=== PATIENT | female | born 1960 | race Hispanic/Latino ===

== ENCOUNTER 2017-08-02 13:04 | Inpatient (IN) | payer OTHER ==
[~2017-08-02] VITALS: Ht 152.4 cm; Wt 57.3 kg
[~2017-08-02 13:04] MED LIST: ALENDRONATE SOD70 MG PO; ANTIVERT 25MG #1 PAC PO; FIORICET 50-301 EACH PO; FOLIC ACID0.4 MG PO; FOLIC ACID0.8 M2 PO; HYDROXYCHLOROQ200 MG PO; HYDROXYZINE50 MG PO; IBUPROFEN600 M1 PO; LEADER MELATONIN5 MG PO; NAPROXEN375 MG PO; NEURONTIN300 MG PO; ZOFRAN ODT4 M1 PO; ZOLPIDEM TARTRA10 M1 PO
[2017-08-02] MEDS ORDERED: SULFASALAZINE500 M2 PO (15:14)
[2017-08-02] MEDS ORDERED: PHENOBARBITAL60 M1 PO (15:14)
[2017-08-02] MEDS ORDERED: CRESTOR5 M1 PO (15:14)
[2017-08-02] MEDS ORDERED: OMEPRAZOLE40 M1 PO (15:15)
[2017-08-02] MEDS ORDERED: ALENDRONATE SOD70 M2 PO (15:15)
[2017-08-02] MEDS ORDERED: NAPROXEN375 M2 PO (15:15)
[2017-08-02] MEDS ORDERED: GABAPENTIN300 M2 PO (15:16)
[2017-08-02 15:57] LABS: ABSOLUTE BASOPHIL COUNT 0 /CUMM (0.0-0.2); ABSOLUTE EOSINOPHIL COUNT 0.1 /CUMM (0.0-0.7); ABSOLUTE GRANULOCYTE CT 2.6 /CUMM (1.4-6.5); ABSOLUTE LYMPH COUNT 2.2 /CUMM (1.2-3.4); ABSOLUTE MONOCYTE COUNT 0.4 /CUMM (0.10-0.60); BASOPHIL % 0.6 % (0.0-2.0); EOSINOPHIL % 1.7 % (0-5); GRANULOCYTE % 48.1 % (42.2-75.2); MEAN CORPUSCULAR HGB 31.8 PG (27.0-31.0); MEAN CORPUSCULAR HGB CONC 33.7 G/DL (33.0-37.0); MEAN CORPUSCULAR VOLUME 94.4 FL (81.0-99.0); MEAN PLATELET VOLUME 8.1 FL (7.4-10.4); PLATELET COUNT 227 /CUMM (130-400); RBC DISTRIBUTION WIDTH 12.8 % (11.5-14.5); RED BLOOD CELL CT 3.81 /CUMM (4.20-5.40); WHITE BLOOD CELL COUNT 5.4 /CUMM (4.8-10.8)
--- NOTE | 2017-08-02 17:12 | ED PSYCHIATRIC COMPLAINT ---
History of Present Illness General Chief Complaint: Psychiatric Related Complaint Stated Complaint: DEPRESSION RELATED COMPLAINTS PER PT Source: patient, Allergies Coded Allergies: morphine (DIZZY 07/16/15) oxycodone (From PERCOCET) (DIZZY 07/16/15) Reconcile Medications Alendronate Sodium 70 MG TABLET 1 TAB PO QW BONE (Reported) in the morning, at least 30 minutes before the first food, beverage, or medication of the day Gabapentin 300 MG CAPSULE 1 CAP PO TID UNKNOWN (Reported) Naproxen 375 MG TABLET 1 TAB PO BID PAIN (Reported) with food Omeprazole 40 MG CAPSULE.DR 1 CAP PO DAILY GI (Reported) Phenobarbital 60 MG TABLET 1 TAB PO BID UNKNOWN (Reported) Rosuvastatin Calcium (Crestor) 5 MG TABLET 1 TAB PO DAILY CHOLESTEROL ( Reported) Sulfasalazine 500 MG TABLET 1 TAB PO BID UNKNOWN (Reported) Triage Note: 57F WITH DEPRESSION ARRIVES TEARFUL IN TRIAGE, STATING SHE HAS WORSENING DEPRESSION X1 MONTH AND OVER THE LAST WEEK HAS WANTED TO KILL HERSELF. HAS PLAN TO OVERDOSE. ENDORSES DYSPHORIA AND INABILITY TO GET OUT OF BED. DENIES ANY RECENT MED CHANGES OR CHANGES IN PSYCHOSOCIAL STRESSORS. DENIES CURRENT PSYCHOTROPIC MED REGIMEN. DENIES ACCESS TO FIREARMS AT HOME. DENIES SI. DENIES ETOH OR ILLICIT DRUGS. Triage Nurses Notes Reviewed? yes HPI: Patient presents for evaluation of severe depression with suicide ideation and medication overdose last week. Patient's depression continues and she feels sad all the time. She has lost interest in "everything" with decreased appetite. She has a history of anxiety and depression and has been taking medications as prescribed. She denies alcohol or drug use. (Kamilah KUHN,Damon Quinn) General Source: patient Exam Limitations: no limitations Vital Signs & Intake/Output Vital Signs & Intake/Output Vital Signs Date Time Temp Pulse Resp B/P B/P Pulse O2 O2 Flow FiO2 Mean Ox Delivery Rate 08/03 0908 98.9 75 20 109/69 98 Room Air 08/03 0721 97.9 76 16 130/80 97 Room Air 08/02 2331 97.8 83 20 142/70 98 Room Air 08/02 1922 98.3 67 20 136/83 99 Room Air 08/02 1704 98.2 72 20 157/82 98 Room Air 08/02 1515 98.2 62 20 139/72 98 Room Air 08/02 1317 98.0 102 18 160/80 99 Room Air ED Intake and Output 08/03 0000 08/02 1200 Intake Total Output Total Balance Patient 127 lb Weight Triage Nurses Notes Reviewed? yes (Anders Navas MD) Past History Travel History Traveled to [place] past 21 day No Medical History Any Pertinent Medical History? 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 No (Damon Triana MD) Medical History Any Pertinent Medical History? see below for history Family History Hx Contributory? No (Anders Navas MD) Review of Systems Review of Systems Constitutional: Reports: no symptoms. EENTM: Reports: no symptoms. Respiratory: Reports: no symptoms. Cardiovascular: Reports: no symptoms. GI: Reports: no symptoms. Genitourinary: Reports: no symptoms. Musculoskeletal: Reports: no symptoms. Skin: Reports: no symptoms. Neurological/Psychological: Reports: see HPI. Hematologic/Endocrine: Reports: no symptoms. Immunologic/Allergic: Reports: no symptoms. All Other Systems: Reviewed and Negative (Damon Triana MD) Review of Systems Constitutional: Denies: see HPI. (Anders Navas MD) Physical Exam Physical Exam General Appearance: SEE BELOW Neurological/Psychiatric: SEE BELOW Comments: General: Alert, calm, cooperative Head: Normocephalic, atraumatic Eyes: Normal inspection, no nystagmus, EOMI Ears: Normal inspection Nose: Normal inspection Throat: Moist mucosa Neck: Supple, no goiter Heart: Regular rate and rhythm, no murmurs rubs or gallops Lungs: Clear to auscultation bilaterally with good air entry Abdomen: Soft nontender nondistended, normal bowel sounds Chest: Nontender Extremities: Normal range of motion grossly, mild tremors present, no cyanosis clubbing or edema of the upper extremities Neurologic: cranial nerves II through XII grossly intact, speech clear, gait normal Psychiatric: No apparent delusions or hallucinations, no pressured speech or thought blocking SAD PERSONS Done? DEFERRED TO CRISIS (Damon Triana MD) Physical Exam General Appearance: well developed/nourished, no apparent distress Neurological/Psychiatric: no motor/sensory deficits, awake SAD PERSONS SAD PERSONS Response Value Age <19 or >45 years? yes 1 Depression/Hopelessness? yes 2 Social Support? has support 0 Total 3 SAD PERSONS Done? yes (Eloise KUHN,Anders Colin) Progress Differential Diagnosis: DEPRESSION, ANXIETY, BIPOLAR DISORDER, PERSONALITY DISORDER Comments: 08/02/2017 5:12:09 PM I have updated Ted on test results. She will be evaluated by the desulfurizer hand momentarily. Ativan order to help with patient's increasing anxiety. 08/02/2017 7:48:13 PM Ted will be reevaluated the morning for her severe depression. 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 08/03/2017 7:32:44 AM patient signed out to me by Dr. 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 08/03/2017 11:10:15 AM Ted is experiencing a migraine headache. She was treated with ibuprofen followed by Naprosyn without improvement. I have just ordered Phenergan for her. Her physical examination is unremarkable and she states that this is a fairly typical migraine headache for her. (Kamilah KUHN,Damon Quinn) Differential Diagnosis: depression vs other. Plan of Care: Orders Procedure Date/time Status Admit to inpatient psych 08/03 1138 Active Regular Diet 08/02 D Active Continuous Observation Monitor 08/02 1530 Active URINE DRUG SCREEN FOR ER ONLY 08/02 1530 Complete ETHANOL 08/02 1530 Complete CBC WITHOUT DIFFERENTIAL 08/02 1530 Complete BASIC METABOLIC PANEL 08/02 1530 Complete ED CRISIS PSYCH CONSULT 08/02 1530 Active Current Medications Sig/Keisha Start time Last Medication Dose Stop Time Status Admin Atorvastatin Calcium 20 MG 1700 08/03 1700 UNVr (Lipitor) Sulfasalazine 500 MG BID 08/03 0930 UNVr 08/03 (Azulfidine 500 MG 0954 Tablet) Naproxen 500 MG BID 08/03 0929 UNVr 08/03 (Naprosyn) 0954 Omeprazole 40 MG DAILY AC 08/03 0929 UNVr 08/03 (Prilosec) 0954 Gabapentin 300 MG TID 08/03 0828 UNVr 08/03 (Neurontin) 0954 Lorazepam 1 MG Q4P PRN 08/03 0100 AC 08/03 (Ativan) 0103 Laboratory Tests 08/02/17 1555: Urine Opiates Screen < 100, Methadone Screen 41, Barbiturate Screen 685 H, Ur Phencyclidine Scrn < 6.00, Amphetamines Screen < 100, U Benzodiazepines Scrn < 85, Urine Cocaine Screen < 50, Urine Cannabis Screen < 5.00 08/02/17 1547: Anion Gap 8, Estimated GFR > 60, BUN/Creatinine Ratio 15.6, Glucose 93, Calcium 9.6, CBC w Diff NO MAN DIFF REQ, RBC 3.81 L, MCV 94.4, MCH 31.8 H, MCHC 33.7, RDW 12.8, MPV 8.1, Gran % 48.1, Lymphocytes % 41.3, Monocytes % 8.3, Eosinophils % 1.7, Basophils % 0.6, Absolute Granulocytes 2.6, Absolute Lymphocytes 2.2, Absolute Monocytes 0.4, Absolute Eosinophils 0.1, Absolute Basophils 0, Serum Alcohol < 10.0 Hand-Off Endorsed To: Damon Trinaa MD Endorsed Time: 0700 Pending: consult (re-evaluation) (Eloise KUHN,Anders Colin) Departure Departure Disposition: STILL A PATIENT Condition: Stable Clinical Impression Primary Impression: Depression Qualifiers: Depression Type: unspecified Qualified Code: F32.9 - Major depressive disorder, single episode, unspecified Secondary Impressions: Migraine Qualifiers: Migraine type: unspecified Status migrainosus presence: with status migrainosus Intractability: not intractable Qualified Code: G43.901 - Migraine, unspecified, not intractable, with status migrainosus Referrals: Gregory Starkey MD (PCP/Family) Departure Forms: Customer Survey General Discharge Information Psych Admission Note Psychiatric Admission: I have seen and evaluated TED PARSONS. I have also reviewed all the pertinent lab results and diagnostic results. TED PARSONS will be admitted to our inpatient Psychiatric unit for treatment and care. (Kamilah KUHN,Damon Quinn)
--- NOTE | 2017-08-02 19:31 | ED PSYCH CRISIS CONSULTATION ---
See Addendum Crisis Consult Basic Assessment Date of Consult: 08/02/17 Responsible Person/Accompanied By: Brought in by her Insurance Authorization: Insurance #1: Insurance name: MED[employer] HMO Phone number: Policy number: [id number] Group number: [id number] Authorization number: ED Provider: Patient's ED Provider: Kamilah KUHN,Damon Quinn Primary Care Physician: Patient's PCP: Jaky KUHN,Gregory PCP's Current Psychiatrist: None Chief Complaint: Psychiatric Related Complaint Patient's Quote: " I have depression." Present Illness: The patient is a 57 year old woman presenting to the ED with worsening symptoms of depression and new onset of suicidal ideation. The patient presented with depressed mood and was crying throughout the evaluation. She states that she has been depressed for many years and feels that this is the worse she has ever felt. She states that she has been experiencing anhedonia, decreased motivation, decreased concentration, decreased sleep (2-3 hours a night), decreased appetite, feeling helpless / hopeless and has not been cleaning her house and cooking, as she always had. Of note, she states she passed out a couple of times last week, secondary to being dehydrated per . She states that she has been on Social Security Disability for her mental health issues for many years and has been seeing a psychiatrist and a therapist, however did not feel the treatment was helpful. She states that she tried multiple medications and did not find them to be helpful, therefore stopped them. She states that she has never been admitted to a hospital for her mental health issues. She reports that she has had suicidal ideations, noting that she did have "about 20 pills," in her hand, ready to take, last week. She reports that she did not take the pills because she thought about her children, grandchildren and her . She denies any current suicidal or homicidal ideations. She denies and current or history of AH or VH. She denies any current or history of drug or alcohol abuse. She is not able to identify any trigger for her increase in symptoms. She did note that she never knew who her biological father was and that her mother left her very young. She struggles with not knowing her biological parents. She states that this is her second marriage and that he is very supportive, however notes that her first was not supportive. She states that she has 3 adult children and that her daughter is currently . She is not sure what would be helpful, however does want to feel better and enjoy her life. DONALD spoke to her Raul Olivera ([phone]), who states that he has noticed the patient to be more depressed. Raul states that the patient has been telling him, that she wants to . He states that he did not know about the self aborted suicide attempt, until the last couple of days. He states that he does not think that she would kill herself. Raul is not sure what would be helpful, however states that he will support, whatever decision that she makes. Patient's Address: [address] [place] [address] Other Phone Number: Who Do You Live With? Spouse Family/Informants Interviewed: - Raul Olivera- [phone] Allergies - Coded Allergies: morphine (DIZZY 07/16/15) oxycodone (From PERCOCET) (DIZZY 07/16/15) Current Medications - Scheduled Medications Alendronate Sodium 70 MG TABLET 1 TAB PO QW BONE #12 (Reported) Entered as Reported by Zen Ty on 08/02/17 1515 Gabapentin 300 MG CAPSULE 1 CAP PO TID UNKNOWN #180 (Reported) Entered as Reported by Zen Ty on 08/02/17 1516 Naproxen 375 MG TABLET 1 TAB PO BID PAIN #180 (Reported) Entered as Reported by Zen Ty on 08/02/17 1515 Omeprazole 40 MG CAPSULE.DR 1 CAP PO DAILY GI #90 (Reported) Entered as Reported by Zen Ty on 08/02/17 1515 Phenobarbital 60 MG TABLET 1 TAB PO BID UNKNOWN #180 (Reported) Entered as Reported by Zen Ty on 08/02/17 1514 Rosuvastatin Calcium (Crestor) 5 MG TABLET 1 TAB PO DAILY CHOLESTEROL #90 ( Reported) Entered as Reported by Zen Ty on 08/02/17 1514 Sulfasalazine 500 MG TABLET 1 TAB PO BID UNKNOWN #180 (Reported) Entered as Reported by Zen Ty on 08/02/17 1514 Laboratory Results: Laboratory Tests 08/02/17 1555: Urine Opiates Screen < 100, Methadone Screen 41, Barbiturate Screen 685 H, Ur Phencyclidine Scrn < 6.00, Amphetamines Screen < 100, U Benzodiazepines Scrn < 85, Urine Cocaine Screen < 50, Urine Cannabis Screen < 5.00 08/02/17 1547: Anion Gap 8, Estimated GFR > 60, BUN/Creatinine Ratio 15.6, Glucose 93, Calcium 9.6, CBC w Diff NO MAN DIFF REQ, RBC 3.81 L, MCV 94.4, MCH 31.8 H, MCHC 33.7, RDW 12.8, MPV 8.1, Gran % 48.1, Lymphocytes % 41.3, Monocytes % 8.3, Eosinophils % 1.7, Basophils % 0.6, Absolute Granulocytes 2.6, Absolute Lymphocytes 2.2, Absolute Monocytes 0.4, Absolute Eosinophils 0.1, Absolute Basophils 0, Serum Alcohol < 10.0 Past History Past Medical History Neurological: NONE Cardiovascular: NONE Respiratory: NONE Gastrointestinal: diverticulitis, hiatal hernia Hepatic: NONE Renal: KIDNEY STONES Musculoskeletal: osteoporosis Psychiatric: NONE Endocrine: NONE Blood Disorders: NONE Cancer(s): NONE 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 Physical Limitations (Interventions): None noted Psychiatric Treatment History Psych Treatment Psychiatric Treatment Yes Inpatient Treatment No Outpatient Treatment Yes Location of Treatment Dr. Cage and therapist "Tiny" Reason for Treatment Depression Dates of Treatment She states she saw them for 2 years and stopped awhile ago. Response to Treatment She did not feel that treatment was helpful and did not feel better from any of the medications. Diagnosis by History: N/A Substance Use/Abuse History Drug Use/Abuse Substances Used/Abused No (Pt. denies) First Use N/A Last Used N/A How much used/taken N/A How often N/A For how long N/A Route of use N/A Substance Abuse Treatment Substance Abuse Treatment Past Substance Abuse [place] No Inpatient Treatment No Outpatient Treatment No Location of Treatment N/A Reason for Treatment N/A Dates of Treatment N/A Response to Treatment N/A Comments: N/A Current Mental Status Mental Status Orientation: Person, Place, Situation Affect: Depressed, Sad Speech: WNL Neuro-vegetative: Anhedonia, Appetite Decreased, Concentration Poor, Energy Decreased, Helpless, Sleep Disturbance Appearance Appearance- Dress/Hygiene: The patient was sitting in the chair, in hospital attire, neat and well kempt with hair pulled back and wearing glasses. Behaviors Thought Process: WNL Thought Content: WNL Memory: WNL Insight: WNL SI/HI Risk Assessment Past Suicidal Ideation/Attempts Yes (Last week) Current Suicidal Ideation/Att No Past Homicidal Ideation/Att: No Current Homicidal Ideation/Attempts No Degree of Intent: The patient states that she had a self aborted suicide attempt , in which she took "about 20 pills," and had them in her hand to take an overdose. She states that she did not take the pills because of her , kids and grandchildren. Danger To: Self Gravely Disabled: N/A Risk Factors: access to lethal means, high anxiety/distress Lethality Ratin PTSD Checklist PTSD Done? patient declined (Did not report trauma or abuse) ED Management Sitter: Yes Restraints: No DSM5/PS Stressors/Medical Prob Diagnosis' (DSM 5, Stressors, Medical): F32.9 Unspecified Depressive Disorder Medical: Osteoporosis, Diverticulitis, and Arthritis Stressors: Chronic mental health issues, her daughter is and not feeling well. Current GAF: 30 Comments: N/A Departure Disposition Psych Medical Clearance Date: 08/02/17 Medically Cleared at: 1730 Time Started: 1729 Time Ended: 1814 Psychiatrist Consulted: Dr. Ramirez Date Disposition Established: 08/02/17 Time Disposition Established: 1814 Plan for Disposition - Modality: Hold over for admission to [facility]. Facility: [facility] Rationale for Disposition: The patient presents with worsening symptoms of depression and new onset suicidal ideations. She recently had a self aborted suicide attempt. She was tearful and depressed and has not felt any improvement with 2 years of OP treatment. Case discussed with Dr. Ramirez and the patient will be held overnight and admitted to [facility], when a bed is available. The patient and her are in agreement with the plan and are both motivated to have her feel better. Type of IP Admission: Voluntary Additional Instructions: N/A Referrals Jaky KUHN,Gregory (PCP/Family)
--- NOTE | 2017-08-03 11:52 | IP CRISIS DIAG ASSESS PSYCH ---
Diagnostic Assessment Basic Assessment Insurance Authorization: Insurance #1: Insurance name: [facility]ICARE [facility] ([employer]) Phone number: Policy number: [id number] Group number: [id number] Authorization number: [id number] authorized 3 days 08/03-08/05 review 08/05 uDc Mendez [phone] [facility] [address] Primary Care Physician: Patient's PCP: Gregory Starkey MD PCP's Patient's Quote: " I have depression." Present Illness: The patient is a 57 year old woman presenting to the ED with worsening symptoms of depression and new onset of suicidal ideation. The patient presented with depressed mood and was crying throughout the evaluation. She states that she has been depressed for many years and feels that this is the worse she has ever felt. She states that she has been experiencing anhedonia, decreased motivation, decreased concentration, decreased sleep (2-3 hours a night), decreased appetite, feeling helpless / hopeless and has not been cleaning her house and cooking, as she always had. Of note, she states she passed out a couple of times last week, secondary to being dehydrated per . She states that she has been on Social Security Disability for her mental health issues for many years and has been seeing a psychiatrist and a therapist, however did not feel the treatment was helpful. She states that she tried multiple medications and did not find them to be helpful, therefore stopped them. She states that she has never been admitted to a hospital for her mental health issues. She reports that she has had suicidal ideations, noting that she did have "about 20 pills," in her hand, ready to take, last week. She reports that she did not take the pills because she thought about her children, grandchildren and her . She denies any current suicidal or homicidal ideations. She denies and current or history of AH or VH. She denies any current or history of drug or alcohol abuse. She is not able to identify any trigger for her increase in symptoms. She did note that she never knew who her biological father was and that her mother left her very young. She struggles with not knowing her biological parents. She states that this is her second marriage and that he is very supportive, however notes that her first was not supportive. She states that she has 3 adult children and that her daughter is currently . She is not sure what would be helpful, however does want to feel better and enjoy her life. SW spoke to her Raul Olivera ([phone]), who states that he has noticed the patient to be more depressed. Raul states that the patient has been telling him, that she wants to . He states that he did not know about the self aborted suicide attempt, until the last couple of days. He states that he does not think that she would kill herself. Raul is not sure what would be helpful, however states that he will support, whatever decision that she makes. Patient's Address: [address] [place] [address] Other Phone Number: Who Do You Live With? Spouse Feel Safe Where You Live? Yes Feel Safe in Your Relationship Yes Marital Status: Do You Have Children? Yes Ages? 37,34,28 Primary Language? Luxembourgish Language(s) Spoken At Home: Uzbek, Luxembourgish Family/Informants Interviewed: - Raul Olivera- [phone] Allergies - Coded Allergies: morphine (DIZZY 07/16/15) oxycodone (From PERCOCET) (DIZZY 07/16/15) Current Medications - Scheduled Medications Alendronate Sodium 70 MG TABLET 1 TAB PO QW BONE #12 (Reported) Entered as Reported by Zen Ty on 08/02/17 151 Gabapentin 300 MG CAPSULE 1 CAP PO TID UNKNOWN #180 (Reported) Entered as Reported by Zen Ty on 08/02/17 151 Naproxen 375 MG TABLET 1 TAB PO BID PAIN #180 (Reported) Entered as Reported by Zen Ty on 08/02/17 1515 Omeprazole 40 MG CAPSULE.DR 1 CAP PO DAILY GI #90 (Reported) Entered as Reported by Zen Ty on 08/02/17 1515 Phenobarbital 60 MG TABLET 1 TAB PO BID UNKNOWN #180 (Reported) Entered as Reported by Zen Ty on 08/02/17 1514 Rosuvastatin Calcium (Crestor) 5 MG TABLET 1 TAB PO DAILY CHOLESTEROL #90 ( Reported) Entered as Reported by Zen Ty on 08/02/17 1514 Sulfasalazine 500 MG TABLET 1 TAB PO BID UNKNOWN #180 (Reported) Entered as Reported by Zen Ty on 08/02/17 151 Consequences of Psych Med Use: pt reports medication in the past was not effective Lab Results: Laboratory Tests 08/02/17 1555: Urine Opiates Screen < 100, Methadone Screen 41, Barbiturate Screen 685 H, Ur Phencyclidine Scrn < 6.00, Amphetamines Screen < 100, U Benzodiazepines Scrn < 85, Urine Cocaine Screen < 50, Urine Cannabis Screen < 5.00 08/02/17 1547: Anion Gap 8, Estimated GFR > 60, BUN/Creatinine Ratio 15.6, Glucose 93, Calcium 9.6, CBC w Diff NO MAN DIFF REQ, RBC 3.81 L, MCV 94.4, MCH 31.8 H, MCHC 33.7, RDW 12.8, MPV 8.1, Gran % 48.1, Lymphocytes % 41.3, Monocytes % 8.3, Eosinophils % 1.7, Basophils % 0.6, Absolute Granulocytes 2.6, Absolute Lymphocytes 2.2, Absolute Monocytes 0.4, Absolute Eosinophils 0.1, Absolute Basophils 0, Serum Alcohol < 10.0 Toxicology Screen Completed? Yes Results: positive Symptoms of Use: barbituates for headaches Past History Abuse/Trauma History Trauma History/Current Trauma: Denies Legal History Current Legal Status: none Psychosocial History Strengths/Capabilities: She is on Social Security Disability and has stable housing and a supportive . Physical Limitations (Interventions): None noted Psychiatric Treatment History Psych Treatment Psychiatric Treatment Yes Inpatient Treatment No Outpatient Treatment Yes Location of Treatment Dr. Cage and therapist "Tiny" Reason for Treatment Depression Dates of Treatment She states she saw them for 2 years and stopped awhile ago. Response to Treatment She did not feel that treatment was helpful and did not feel better from any of the medications. Diagnosis by History: N/A Risk Factors: access to lethal means, high anxiety/distress Substance Use/Abuse History Drug Use/Abuse minimum 12mo Hx Substances Used/Abused No (Pt. denies) First Use N/A Last Used N/A How much used/taken N/A How often N/A For how long N/A Route of use N/A Substance Abuse Treatment Substance Abuse Treatment Past Substance Abuse TX No Inpatient Treatment No Outpatient Treatment No Location of Treatment N/A Reason for Treatment N/A Dates of Treatment N/A Response to Treatment N/A Education History Highest Level of Education: high school/GED Preferred Learning Style: visual, auditory, experiential Current Mental Status Mental Status Orientation: Person, Place, Situation Affect: Depressed, Sad Speech: WNL Neuro-vegetative: Anhedonia, Appetite Decreased, Concentration Poor, Energy Decreased, Helpless, Sleep Disturbance Appearance Appearance- Dress/Hygiene: The patient was sitting in the chair, in hospital attire, neat and well kempt with hair pulled back and wearing glasses. Behaviors Thought Process: WNL Thought Content: WNL Memory: WNL Insight: WNL SI/HI Risk Assessment - Minimum 6mo History- Past Suicidal Ideation/Attempts Yes (Last week) Current Suicidal Ideation/Att No Past Homicidal Ideation/Att: No Current Homicidal Ideation/Attempts No Degree of Intent: The patient states that she had a self aborted suicide attempt , in which she took "about 20 pills," and had them in her hand to take an overdose. She states that she did not take the pills because of her , kids and grandchildren. Danger To: Self Gravely Disabled: N/A Risk Factors: access to lethal means, high anxiety/distress Lethality Ratin Needs/Init TX Plan/Goals: Psychiatric Evaluation Medication Assessment Individual, Group and Family meetings Coordinated discharge planning AUDIT-C Questionnaire: AUDIT-C Questionnaire: Response Value ETOH use in the past year Never 0 # drinks typical/day Doesn't Drink 0 6 or > drinks per occasion Never 0 Total 0 DSM5/PS Stressors/Medical Prob Diagnosis' (DSM 5, Stressors, Medical): F32.9 Unspecified Depressive Disorder Medical: Osteoporosis, Diverticulitis, and Arthritis Stressors: Chronic mental health issues, her daughter is and not feeling well. Current GAF: 30 Comments: N/A
[2017-08-03 16:45] VITALS: BP 123/69
[2017-08-03 19:42] VITALS: BP 115/65
[2017-08-04 07:49] VITALS: BP 125/75
--- NOTE | 2017-08-04 11:12 | CPS PROVIDER INIT ASMT PSYCH ---
Psychiatric Admission School Operations Manager's Note Reviewed: Yes Patient Seen and Examined: Yes Identifying Information: The patient is a 57 year old woman Chief Complaint: " I have depression." Reaction to Hospitalization: Patient was admitted voluntarily History of Present Illness Onset of Illness: The patient has had several months of depression she did in fact see Dr. Cage at [facility] but it seems that she has not been back to care since April of this year. Circumstances Leading to Admission: Increase in depression and thoughts of suicide and contemplating an overdose on pills Problem(s) Justifying Need for Admission: Thoughts of suicide with intent and plan Past Psychiatric History Past Diagnosis(es)- if any: Major depressive disorder Past Precipitating Factors- if any: Nonadherence to medication - Include inpatient and outpatient treatment Treatment History: The patient was with [facility] but not since April 2017. She reported that she saw Dr. Cage who prescribed an antidepressant she reported that she took it for a month or 2 but did not find it helpful. History of Suicide Attempts or Gestures There is no history of past suicide attempts. There was a reference in the record --made in error-- to a suicide attempt but there was no actual attempt the patient was thinking about or contemplating taking an overdose. Substance Abuse History: Patient denied any history of alcohol abuse or drug use Allergies: Coded Allergies: morphine (DIZZY 07/16/15) oxycodone (From PERCOCET) (DIZZY 07/16/15) Home Med List: Alendronate Sodium 70 MG TABLET 1 TAB PO QW BONE #12 (Reported) Entered as Reported by Zen Ty on 08/02/17 1515 Gabapentin 300 MG CAPSULE 1 CAP PO TID UNKNOWN #180 (Reported) Entered as Reported by Zen Ty on 08/02/17 1516 Naproxen 375 MG TABLET 1 TAB PO BID PAIN #180 (Reported) Entered as Reported by Zen Ty on 08/02/17 1515 Omeprazole 40 MG CAPSULE. 1 CAP PO DAILY GI #90 (Reported) Entered as Reported by Zen Ty on 08/02/17 1515 Phenobarbital 60 MG TABLET 1 TAB PO BID UNKNOWN #180 (Reported) Entered as Reported by Zen Ty on 08/02/17 1514 Rosuvastatin Calcium (Crestor) 5 MG TABLET 1 TAB PO DAILY CHOLESTEROL #90 ( Reported) Entered as Reported by Zen Ty on 08/02/17 1514 Sulfasalazine 500 MG TABLET 1 TAB PO BID - Include any medical condition(s) that may - impact the patient's recovery/remission Past Medical History: Osteoporosis gastroesophageal reflux disease Past History Medical History Neurological: NONE Cardiovascular: NONE Respiratory: NONE Gastrointestinal: diverticulitis, hiatal hernia Hepatic: NONE Renal: KIDNEY STONES Musculoskeletal: osteoporosis Psychiatric: NONE Endocrine: NONE Blood Disorders: NONE Cancer(s): NONE 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 Isolation History: Standard Surgical History Surgical History: non-contributory Psychiatric Family/Social Hx Family History Psychiatric Illness: The patient denied psychiatric illnesses in her family Substance Use: Patient denied alcohol or substance use history in her family Suicides: Patient denied any suicides in her family Social History Living Situation: Lives with and adult son Significant Relationships (family/friends): , son, daughter, grandchildren Education: Not explored Vocation/Occupation: Currently unemployed Legal: No legal entanglements Healthly Behaviors Screening Tobacco Screening Tobacco Use from ED Docu: Never used - If tobacco counseling indicated - the following topics are required. - #1 Recognizing dangerous situations. - #2 Coping Skills. - #3 Basic information about quitting. Status of Tobacco Cessation Counseling: Not Applicable Cessation Med Status Not Applicable Alcohol Screening - ETOH screen POS if BAL >=80 or Audit-C>= M4/F3 Audit-C Score from Diag Assess: 0 Blood Alcohol Level: Laboratory Tests 08/02 1547 Toxicology Serum Alcohol (<10 MG/DL) < 10.0 Alcohol Use Screening Results: Neg per Audit C &/or BAL - If ETOH counseling indicated - the following topics are required. - #1 Express concern about the patient's - drinking at unhealthy levels, include informing - of national norms for moderate drinking: - men <= 14 drinks/week, max 4 drinks/occasion - women <= 7 drinks/week, max 3 drinks/occasion - #2 Providing feedback, including linking alcohol to - negative physical effects (liver injury, hypertension) - negative emotional effects (relationship problems and - depression) - negative occupational consequences (reduced work - performance) - #3 Advising the patient to abstain from alcohol or - to drink below national norms for moderate drinking - (as listed above). Status of ETOH Use Counseling: N/A B/C NO ETOH Use Metabolic Screening - Screen if on a Neuroleptic Medication - Metabolic screening should include: - Blood Pressure, BMI, Glucose or Hgb A1c, & a - Lipid profile from within the past 365 days. Metabolic Screening Not Applicable, patient not on a neuroleptic. Exam and Plan Mental Status Examination Ambulation Status: Patient was steady on her feet. Appearance: Unremarkable appearance. Attitude towards examiner: She was calm and cooperative. Psychomotor activity: She showed normal psychomotor activity. Behavior: She did not exhibit any abnormal or bizarre behaviors. Quality of speech: Normal accented speech Affect: Good range of affect. Mood: Depressed mood. Suicidal Ideation: No longer having thoughts of suicide. Homicidal Ideation: No thoughts of homicide. Hallucinations: Denied hallucinations. Paranoid/Delusional Material: Denied feeling paranoid, there were no delusions during the interview. Difficulties with thought organization: The patient was coherent, there was no thought disorder. Insight: She seems to have good insight. Judgment: Good judgment. Orientation: She was alert and oriented to time, place, and person. Cognition: She did not seem to have any difficulties with information processing, attention , or concentration. Memory Function: Did not seem to have any difficulties with short-term memory. Estimate of intellectual functioning: Average Assets/Strengths Patient Identified Assets/Strengths: The patient has a supportive and supportive children, she is resilient, she is hard-working and likable Impression/Plan Impression and Plan: 57-year-old from [facility] who was admitted because of increasing depression and contemplating suicide. The patient have a very supportive family and social network and seems to have turned around pretty quickly and no longer thinking of suicide. She does continue to be depressed and we discussed treatment options. She was agreeable to the intensive outpatient program with [facility]. The patient did not find the 20 mg of Celexa helpful in the past so she was started on Zoloft 50 mg daily. - Include all active medical diagnosis that require tx DSM 5 Diagnosis(es): Major depressive disorder - Initial Tx Plan for Active Psych & Medical Conditions Treatment Plan: Inpatient psychiatric care with safety checks every 15 minutes Start Zoloft 50 mg daily Most likely would be discharged tomorrow to do intensive outpatient program at [facility]. - Factors that would help patient function - in a less restrictive setting. Factors: The patient will be discharged tomorrow if there is no return of any thoughts of suicide.
[2017-08-04 12:36] VITALS: BP 134/63
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
[2017-08-04 16:21] VITALS: BP 98/78
[2017-08-04 19:37] VITALS: BP 129/75
[2017-08-05 07:52] VITALS: BP 130/76
[2017-08-05] MEDS ORDERED: SERTRALINE HCL50 MG PO (08:49)
--- NOTE | 2017-08-05 09:04 | Patient Discharge Instructions ---
Psych Discharge Inst General Discharge Information Reason for Admission: Contemplating suicide Psy Discharge Primary Diag+ Major Depressive Disorder Psy Discharge Secondary Diag+ Generalized Anxiety Disor Summary Tests/Major Procedures Lab Barbiturate Screen 685 NG/ML H 08/02/17 1555 Studies Pending at DC: None Patient Instructions Contact Information Your Psychiatrist on [facility] was James KUHN,Sonu * If you are experiencing an emergency related to this hospitalization, please call [phone] to contact the treating psychiatrist or the psychiatrist-on- call. * To Request a copy of your medical records, please contact the Medical Records Department at [phone]. * To request results of studies pending at the time of discharge, please call [phone]. * Continue your Medications until directed to stop by your Healthcare provider. General Medication Information Please continue to take your new medications and your continued home medications , unless otherwise indicated on your discharge medication list, or unless directed by your MD or JINRIKSHA DRIVER to stop them. Special Instructions Diet Regular Activity Normal - Tobacco Use Treatment Offered Post DC Medications Offered: Not Applicable Post DC Tobacco Treatment Plan: Not Applicable - EtOH/Drug Use D/O Treatment Offered Post DC Medications Offered: NA-No EtOH/Drug Use D/O Post DC EtOH/SubAbuse TX Plan: NA-No EtOH/Drug Use D/O Metabolic Screening Not Applicable, patient not on a neuroleptic. Advance Directives Does the Patient have Medical Advance Directives No/Refused further info Does Pt have Psychiatric Advance Directives? No/Refused further info Does Patient have a Designated Surrogate Decision Maker: No Information About Psychiatric Advance Directives Provided? Refused Discharge Plan Post Hospital Treatment Plan: [facility] IOP
[2017-08-05] MEDS ORDERED: ATIVAN0.5 M1 PO (09:09)
[2017-08-05] MEDS ORDERED: PHENOBARBITAL60 M1 PO (09:09)
--- NOTE | 2017-08-05 10:40 | SOCIAL WORKER PROG NOTE PSYCH ---
Social Work Progress Note Progress Note Pt is prepared for discharge and is here to pick her up this morning. [facility] will see her tomorrow at 2pm with Dr. Kevin Quach appointment will be made available at that time, as they will make an accommodations, currently he is booking into October. They will tell her tomorrow, and I told pt and her to give us a call if the appointment is not within 2 weeks, and they understand. Nicole from [facility] said most likely Dr. Saha would see her Wednesday08/09/17, and will confuirm with pt tomorrow. Faxed Referral(s) Referred To: [facility]/Nicole Transition of Care Documents sent: DC Instructions, Health Summary Faxed to: Nicole Fax #: [phone] Faxed by: Cecilia Date faxed: 08/05/17 Time Faxed: [phone]
--- NOTE | 2017-08-05 12:36 | DISCHARGE SUMMARY REPORT-PSYCH ---
Visit Information Visit Dates/Diagnosis' Admission Date: 08/03/17 Discharge Date: 08/05/17 Reason for Admission: Contemplating suicide Psy Discharge Primary Diag: Major Depressive Disorder Psy Discharge Secondary Diag: Generalized Anxiety Disor Hospital Course Significant Lab Findings: Lab Barbiturate Screen 685 NG/ML H 08/02/17 1555 Course Complications: Patient did not have any complications while she was in the inpatient psychiatric unit. Consultations: Patient had a history and physical examination by the hospitalist which was benign. Please refer to the details of the H&P in the patient's electronic health record Allergies: Coded Allergies: morphine (DIZZY 07/16/15) oxycodone (From PERCOCET) (DIZZY 07/16/15) Hospital Course/TX Response: 08/04/2017: Impression and Plan: 57-year-old from [facility] who was admitted because of increasing depression and contemplating suicide. The patient have a very supportive family and social network and seems to have turned around pretty quickly and no longer thinking of suicide. She does continue to be depressed and we discussed treatment options. She was agreeable to the intensive outpatient program with [facility]. The patient did not find the 20 mg of Celexa helpful in the past so she was started on Zoloft 50 mg daily. Diagnosis(es): Major depressive disorder Treatment Plan: Inpatient psychiatric care with safety checks every 15 minutes Start Zoloft 50 mg daily Most likely would be discharged tomorrow to do intensive outpatient program at [facility]. 08/05/2017: Mental Status Examination Patient was steady on her feet. She was calm and cooperative. She showed normal psychomotor activity. Behavior: She did not exhibit any abnormal or bizarre behaviors. Quality of speech: Normal accented speech Affect: Good range of affect. Today, she reported that she is in a better mood. Reported that her depression is much less intense than in the past few days. No longer having thoughts of suicide. No thoughts of homicide. Denied hallucinations. Denied feeling paranoid, there were no delusions during the interview. The patient was coherent, there was no thought disorder. She seems to have good insight. Good judgment. She was alert and oriented to time, place, and person. She did not seem to have any difficulties with information processing, attention, or concentration. Did not seem to have any difficulties with short-term memory. Impression: 57-year-old from [facility] who was admitted because of increasing depression and contemplating suicide. The patient have a very supportive family and social network and seems to have turned around pretty quickly and no longer thinking of suicide. She does continue to be depressed and we discussed treatment options. She was agreeable to the intensive outpatient program with [facility]. The patient did not find the 20 mg of Celexa helpful in the past so she was started on Zoloft 50 mg daily. Diagnosis(es): major depressive disorder Treatment Plan: discharge home to do intensive outpatient program at [facility]. Discharge HBIPS - Tobacco Use Treatment Offered Post DC Medications Offered: Not Applicable Post DC Tobacco Treatment Plan: Not Applicable - EtOH/Drug Use D/O Treatment Offered Post DC Medications Offered: NA-No EtOH/Drug Use D/O Post DC EtOH/SubAbuse TX Plan: NA-No EtOH/Drug Use D/O Metabolic Screening - Screen if on a Neuroleptic Medication - Metabolic screening should include: - Blood Pressure, BMI, Glucose or Hgb A1c, & a - Lipid profile from within the past 365 days. Metabolic Screening Not Applicable, patient not on a neuroleptic. Discharge Instructions General Discharge Information Multiple Neuroleptics: Not Applicable Discharge Diet Regular Discharge Activity Normal DC Disposition: Home Referrals Ordered Referrals Provider Referral 08/06/17 For Groups: [[facility]] Pt has a follow up outaptient appt with [facility] Stephanie Boss 08/06/17 at 2pm Her appointment with Dr. Brown is pending and will be given to her at her [facility] appointment tomorrow Prescriptions Stop taking the following medications: Phenobarbital (Phenobarbital) 60 MG TABLET ORAL TWICE DAILY Qty = 180 Continue taking these medications: Sulfasalazine (Sulfasalazine) 500 MG TABLET 1 Tablet ORAL TWICE DAILY Qty = 180 Comments: Last Taken:08/05 Time:0837 Rosuvastatin Calcium (Crestor) 5 MG TABLET 1 Tablet ORAL DAILY Qty = 90 Comments: Last Taken:not taken during hospitalization on Lipitor; 08/04 1632 Time: Alendronate Sodium (Alendronate Sodium) 70 MG TABLET 1 Tablet ORAL Once a Week Qty = 12 Instructions: in the morning, at least 30 minutes before the first food, beverage, or medication of the day Comments: Last Taken:08/04/17 Time:0600 Omeprazole (Omeprazole) 40 MG CAPSULE.DR 1 Capsule ORAL DAILY Qty = 90 Comments: Last Taken:08/05 Time:0644 Naproxen (Naproxen) 375 MG TABLET 1 Tablet ORAL TWICE DAILY Qty = 180 Instructions: with food Comments: Last Taken:08/05 Time:0837 Gabapentin (Gabapentin) 300 MG CAPSULE 1 Capsule ORAL THREE TIMES DAILY Qty = 180 Comments: Last Taken:08/05/17 Time:0837 Start taking the following new medications: Sertraline HCl (Sertraline HCl) 50 MG TABLET 50 Milligram ORAL DAILY Qty = 15 No Refills Comments: Last Taken:08/05 Time:0837 Phenobarbital (Phenobarbital) 60 MG TABLET 1 Tablet ORAL AT BEDTIME Qty = 15 No Refills Comments: Last Taken:08/04/17 Time:2100 Lorazepam (Ativan) 0.5 MG TABLET 1 Tablet ORAL SEE INSTRUCTIONS Qty = 60 No Refills Instructions: 1 tab PO Q6hrs PRN anxiety & 2 tabs QHS PRN insomnia Comments: Last Taken:08/03/17 Time:0100 Studies Pending at Discharge None Copies To: Jaya
--- NOTE | 2017-08-05 13:05 | History & Physical ---
General Information and HPI MD Statement: I have seen and personally examined TED PARSONS and documented this H&P. The patient is a 57 year old F who presented with a patient stated chief complaint of "I have depression"]. Source of Information: patient Exam Limitations: no limitations History of Present Illness: Female with depression worsening depression for the last month suicidal ideation wanted to kill herself and plan to overdose. Lack of motivation feeling helpless and hopeless. She is taking her medications as prescribed Allergies/Medications Allergies: Coded Allergies: morphine (DIZZY 07/16/15) oxycodone (From PERCOCET) (DIZZY 07/16/15) Home Med list Alendronate Sodium 70 MG TABLET 1 TAB PO QW BONE (Reported) in the morning, at least 30 minutes before the first food, beverage, or medication of the day Gabapentin 300 MG CAPSULE 1 CAP PO TID UNKNOWN (Reported) Lorazepam (Ativan) 0.5 MG TABLET 1 TAB PO SEE ADMIN CRITERIA anxiety/insomnia 1 tab PO Q6hrs PRN anxiety & 2 tabs QHS PRN insomnia Naproxen 375 MG TABLET 1 TAB PO BID PAIN (Reported) with food Omeprazole 40 MG CAPSULE.DR 1 CAP PO DAILY GI (Reported) Phenobarbital 60 MG TABLET 1 TAB PO AT BEDTIME insomnia/anxiety Rosuvastatin Calcium (Crestor) 5 MG TABLET 1 TAB PO DAILY CHOLESTEROL ( Reported) Sertraline HCl 50 MG TABLET 50 MG PO DAILY anxiety/depression Sulfasalazine 500 MG TABLET 1 TAB PO BID UNKNOWN (Reported) Compliance With Home Meds: UNKNOWN Past History Travel History Traveled to [place] past 21 day No Medical History Neurological: NONE Cardiovascular: NONE Respiratory: NONE Gastrointestinal: diverticulitis, hiatal hernia Hepatic: NONE Renal: KIDNEY STONES Musculoskeletal: osteoporosis Psychiatric: NONE Endocrine: NONE Blood Disorders: NONE Cancer(s): NONE [employer] SCI[employer]/Reproductive: NONE Isolation History: Standard Surgical History Surgical History: N Past Family/Social History Employment History Employment Disability Review of Systems Review of Systems Constitutional: Reports: see HPI. Exam & Diagnostic Data Last 24 Hrs of Vital Signs/I&O Vital Signs Date Time Temp Pulse Resp B/P B/P Pulse O2 O2 Flow FiO2 Mean Ox Delivery Rate 08/05 0752 98.2 94 130/76 08/04 1937 98.9 81 129/75 08/04 1621 74 98/78 Physical Exam General Appearance Alert, Oriented X3, Cooperative Skin No Rashes, No Breakdown HEENT PERRLA, EOMI, Mucous Membr. moist/pink Neck Supple, No JVD, No thryomegaly Lymphatic Axillary nl, Cervical nl Cardiovascular Regular Rate, No Murmurs Lungs Clear to Auscultation, Normal Air Movement Abdomen Normal Bowel Sounds, Soft, No Tenderness, No Hepatospenomegaly Neurological Exam Findings: Normal Gait, Normal Speech, Strength at 5/5 X4 Ext, Normal Tone, Sensation Intact, Cranial Nerves 3-12 NL, Reflexes 2+ Cranial Nerves II through XII: Intact Extremities No Edema, Normal Pulses Vascular Normal Pulses, Pulses Symmetrical Last 24 Hrs of Labs/Rafiq: Laboratory Tests 08/02/17 1555: Urine Opiates Screen < 100, Methadone Screen 41, Barbiturate Screen 685 H, Ur Phencyclidine Scrn < 6.00, Amphetamines Screen < 100, U Benzodiazepines Scrn < 85, Urine Cocaine Screen < 50, Urine Cannabis Screen < 5.00 08/02/17 1547: Anion Gap 8, Estimated GFR > 60, BUN/Creatinine Ratio 15.6, Glucose 93, Calcium 9.6, CBC w Diff NO MAN DIFF REQ, RBC 3.81 L, MCV 94.4, MCH 31.8 H, MCHC 33.7, RDW 12.8, MPV 8.1, Gran % 48.1, Lymphocytes % 41.3, Monocytes % 8.3, Eosinophils % 1.7, Basophils % 0.6, Absolute Granulocytes 2.6, Absolute Lymphocytes 2.2, Absolute Monocytes 0.4, Absolute Eosinophils 0.1, Absolute Basophils 0, Serum Alcohol < 10.0 Diagnostic Data ITS Data Unobtainable at this time Assessment/Plan As Ranked By This Provider Problem List: 1. Depression Qualifiers Depression Type: unspecified Qualified Code: F32.9 - Major depressive disorder, single episode, unspecified Miscellaneous Miscellaneous Documentation Attending Case Discussed With: James KUHN,Sonu Primary Care Physician: Gregory Starkey MD Patient sees these Specialists psychiatry Level of Patient Care: [facility] Consults Needed: Consulting Specialty: Psychiatry Consulting Physician: Dr Laws Reason for Consult: depression
== END 2017-08-05 10:56 | DRG 881 ==
LOC: ERH 13:04 → EDBEDREQ 08-03 11:49 → ERHI 08-03 11:54 → ENTRNSPT 08-03 15:49 → EDTRNSPTSTS 08-03 15:54 → EDTRNSPT 08-03 15:54 → CP SOUTH 08-03 16:02 → CMPTRNSPT 08-03 16:21 → CP SOUTH 08-03 16:29
PROVIDERS: Emergency Medicine
DX: F32.9 Major depressive disorder, single episode, unspecified (principal); F41.9 Anxiety disorder, unspecified
CPT/HCPCS: 80307; G0480; J2550